=== PATIENT | male | born 1960 | race Caucasian/White ===

== ENCOUNTER → 2018-11-20 | Outpatient (CLI) | payer BC ==
--- NOTE | 2018-11-20 13:29 | CONS ---
cc: Ajay. Yolie HUNTER CONSULTATION DATE OF SERVICE: 11/20/2018. A 57-year-old gentleman who has been evaluated in the Sleep [facility] for possible obstructive sleep apnea-hypopnea syndrome. HISTORY OF PRESENT ILLNESS SLEEP/WAKE-EVALUATION: Patient usual sleep schedule on weekdays from around 12 to 1 am until 8 or 9 am and on weekends from about 9 to 10 pm until 7 am. Usually no problems with falling asleep, although patient has TV set in bedroom. He sleeps in different position with extremely loud snoring because of loud isthmus of his snoring. He sleeps in a separate room from his . He wakes up from sleep 3 times with 1 episode of nocturia at night. No history of hypnagogic hallucinations, sleep paralysis or cataplexy. Patient increased his weight around 25 pounds for the last 5 years. PAST MEDICAL HISTORY: Hypertension, not on good control with 3 medications, hyperlipidemia. PAST SURGICAL HISTORY: Status post pilonidal cyst removed, fracture of the wrist. SOCIAL HISTORY: Positive for smoking for about 30 years with 1 pack a day, quit 9 months ago. Alcohol consumption occasional. REVIEW OF SYSTEMS: Awakenings from sleep, sometimes take naps daily, often on and also in a asleep part of the sleep. [employer] Sleepiness Scale 4 in family history who presents impression diabetes really checked radiographically okay. The patient does not know the dozen. No any family history. No clear disorders of respirations. PHYSICAL EXAM: A gentleman without distress BP 149/86, HR 58, RR 16, height 5 feet 10 inches, weight 192 pounds. Body mass index 27.5, temperature 97.8, oxygen saturation at room air 96% OROPHARYNX: Low position of soft palate. Mallampati III. Restriction of nasal breathing. Significant retrognathia 7 mm. Neck 15-1/2 inches in circumference. Neck Supple, no JVD. Thyroid is not palpable. LUNGS Clear to percussion and to auscultation. Good air exchange. No wheezing or rhonchi. HEART S1, S2 regular. No murmurs, gallops, or rubs. ABDOMEN Soft and nontender. Bowel sounds are present. No organomegaly appreciated. EXTREMITIES No clubbing or cyanosis. TRACE EVIDENCE TECHNICIAN Awake, alert, and oriented X3. Cranial nerves 2 to 7 intact. There is no fasciculation or atrophy. noted. No focal deficits observed. IMPRESSION: 1. Loud snoring, multiple awakenings from sleep, low position of soft palate, restriction of nasal breathing, retrognathia, obstructive sleep apnea- hypopnea syndrome .. 2. Hypertension, not under good control with three medications. 3. Hyperlipidemia. 4. Status post pilonidal cyst removal. 5. Status post fracture of the wrist in the past. PLAN: 1. Polysomnography for evaluation of patient's breathing during sleep. 2. CPAP/BiPAP titration if sleep study confirms obstructive sleep apnea-hypopnea syndrome. 3. Preferable position during sleep on the side. 4. No driving if patient feels any sleepiness. 5. I will see patient for follow up visit to explain results of testing and following plan. Thank you very much for referring this patient for consultation. Sincerely, Ramirez Phipps MD, PhD, FAASM Diplomat of [employer] [employer] [facility] [employer] [facility] Vida Ramirez Phipps MD, PhD, FAASM Diplomat of [place] [employer] [employer] [facility] Vida MMODL / HEIDIN: [id number] / MTDD
--- NOTE | 2018-11-20 14:24 | CONS ---
CONSULTATION ADDENDUM: Please send to referring Dr. Claude Urbano MD, Classroom Technology Coach DANE / BRENDA: [id number] / MTDD
== END ==
LOC: SLEEP 11:42
PROVIDERS: ATTEND Internal Medicine
DX: G47.33 Obstructive sleep apnea (adult) (pediatric) (principal); E78.5 Hyperlipidemia, unspecified; Z98.890 Other specified postprocedural states; Z87.81 Personal history of (healed) traumatic fracture; I10 Essential (primary) hypertension; Z99.89 Dependence on other enabling machines and devices; Z87.891 Personal history of nicotine dependence
CPT/HCPCS: 99211

== ENCOUNTER → 2019-03-12 | Outpatient (CLI) | payer BC ==
--- NOTE | 2019-03-12 13:04 | SFUN ---
SLEEP CENTER FOLLOW UP NOTE DATE OF SERVICE: 03/12/2019 This 58-year-old gentleman has been followed in sleep center for treatment of obstructive sleep apnea-hypopnea syndrome patient. Recently had a home sleep apnea test which showed severe sleep apnea. Then he had CPAP titration and subsequently was started on treatment with CPAP. I discussed results of sleep studies with patient in details. He was able to use CPAP equipment every night for the whole night without significant problems related to mask fitting, pressure humidification. He feels better having to his sleep. [place] Sleepiness Scale today is 4, which is normal. I checked his CPAP unit, range of the pressure 5 to 14 cm of water. The average pressure 12.5 cm of water, quite high leak 38 L/minute for usage of nasal pillow mask. The patient using Andersen FX nasal pillows. The usage of the machine 28 out of 30 nights for more than 4 hours with average usage is 7.3 hours, which is great compliance. Apnea-hypopnea index is only 2.4, which is absolutely normal. MEDICATIONS: Atorvastatin, amlodipine. PHYSICAL EXAMINATION: During physical exam, patient is in no distress. VITAL SIGNS: BP 155/82, HR 70, RR 16, weight 197, temp 97.8, oxygen saturation at room air 97%. HEENT: PERRLA, EOMI. Oropharynx low position of soft palate, Mallampati 3-4. NECK: Supple, no JVD. Thyroid is not palpable. LUNGS: Clear to percussion and to auscultation. Good air exchange. No wheezing or rhonchi. HEART: S1, S2 regular. No murmurs, gallops, or rubs. ABDOMEN: Slightly obese. EXTREMITIES: No clubbing or cyanosis. MACHINE STACKER: Awake, alert, and oriented X3. Cranial nerves 2 to 7 intact. There is no fasciculation or atrophy. noted. No focal deficits observed. IMPRESSION: 1. Severe obstructive sleep apnea-hypopnea syndrome, apnea-hypopnea index 54.2 with oxygen desaturation to 79% by results of home sleep apnea test on full control with CPAP. The patient demonstrated great compliance with treatment, benefitting from treatment. 2. Obesity. 3. Hypertension. 4. Hyperlipidemia. 5. Status post pilonidal cyst removed. PLAN: 1. Patient will continue to use CPAP equipment every night for the whole night. 2. Watching and losing weight. 3. Sleep hygiene with regular time in bed for at least 8 hours. 4. No driving if feeling any sleepiness. 5. I will maintain all necessary CPAP supplies, prescriptions including nasal pillow mask Andersen FX, heated tube, filters. 6. Followup visit in about 1 year or earlier if patient has any problems. Thank you very much for allowing me to participate in management of your patient. Sincerely, Ramirez Phipps MD, PhD, FAASM Diplomat of [place] [employer] [employer] Purchase Order [employer] [facility] [place] MMODL / IJN: [id number] /
== END ==
LOC: SLEEP 11:38
PROVIDERS: ATTEND Internal Medicine
DX: G47.33 Obstructive sleep apnea (adult) (pediatric) (principal); E66.9 Obesity, unspecified; I10 Essential (primary) hypertension; E78.5 Hyperlipidemia, unspecified; Z98.890 Other specified postprocedural states; Z99.89 Dependence on other enabling machines and devices; Z79.899 Other long term (current) drug therapy

== ENCOUNTER → 2020-09-15 | Outpatient (CLI) | payer BC ==
--- NOTE | 2020-09-15 11:16 | CTL ---
EXAMINATION TYPE: CT Low Dose Lung DATE OF EXAM ORDERED: 09/15/2020 HISTORY: . Lung cancer screening CT DLP: 97.3 mGycm Automated exposure control for dose reduction was used. SCREENING VISIT: COMPARISON: TECHNIQUE: Low dose computed tomography scan was performed through the chest at 1 mm thick sections a nd reconstructed images in the coronal plane at [address] DIAGNOSTIC QUALITY: Satisfactory FINDINGS: LUNG NODULES: None. LUNGS: COPD: Severity: None Fibrosis: Severity: None Lymph nodes: None Other findings: None RIGHT PLEURAL SPACE: Effusion: None Calcification: None Thickening: None Pneumothorax: None LEFT PLEURAL SPACE: Effusion: None Calcification: None Thickening: None Pneumothorax: None HEART: Heart Size: Normal Coronary calcification: Minimal Pericardial effusion: None OTHER FINDINGS: Upper abdomen: Normal Bony thorax: Normal Supraclavicular region: Normal Other: Ascending thoracic aorta at the level of main pulmonary artery is 3.8 cm. The main pulmonary a rtery the bifurcation is 2.7 cm. IMPRESSION: No suspicious changes to suggest neoplasm FOLLOW UP CT CHEST RECOMMENDATION: Follow-up low-dose CT chest [address] LUNG RAD: 1
== END | disposition home or self-care (01) ==
LOC: RADCTMAIN 07:48
PROVIDERS: ATTEND Family Medicine
DX: Z12.2 Encounter for screening for malignant neoplasm of respiratory organs (principal); Z87.891 Personal history of nicotine dependence

== ENCOUNTER → 2022-09-11 | Outpatient (CLI) | payer BC ==
--- NOTE | 2022-09-11 11:41 | XR ---
EXAMINATION TYPE: XR shoulder complete LT DATE OF EXAM: 09/11/2022 COMPARISON: NONE HISTORY: PAIN TECHNIQUE: Three views are submitted. FINDINGS: The osseous structures are intact. There is no acute fracture or dislocation. The joint arthropathy noted.. IMPRESSION: 1. AC joint arthropathy consider follow-up MRI..
== END | disposition home or self-care (01) ==
LOC: RADXRYALE 11:20
PROVIDERS: ATTEND Family Medicine
DX: M12.812 Other specific arthropathies, not elsewhere classified, left shoulder (principal); M25.512 Pain in left shoulder

== ENCOUNTER → 2023-09-18 | Outpatient (CLI) | payer BC ==
--- NOTE | 2023-09-18 13:07 | CA ---
Transthoracic Echo Report Name: Jerry Marie Age: 62 Gender: M : 1960 Exam Date: 09/18/2023 11:42 Exam Location: [facility] Ht (in): 70 Wt (lb): 200 Ordering Physician: Kyle Lim DO Attending/Referring Phys: Kyle Lim DO Senior Business Analyst Lakeisha King [facility] Procedure CPT: Indications: I35.1 NONRHEUMATIC AORTIC (VALVE) INSUFFICIENCY Cardiac Hx: Technical Quality: Fair Contrast 1: Total Dose (mL): Contrast 2: Total Dose (mL): MEASUREMENTS (Male / Female) Normal Values 2D ECHO LV Diastolic Diameter PLAX 5.1 cm 4.2 - 5.9 / 3.9 - 5.3 cm LV Systolic Diameter PLAX 3.9 cm IVS Diastolic Thickness 1.0 cm 0.6 - 1.0 / 0.6 - 0.9 cm LVPW Diastolic Thickness 1.0 cm 0.6 - 1.0 / 0.6 - 0.9 cm LV Relative Wall Thickness 0.4 LVOT Diameter 2.0 cm Ascending Aorta Diameter 3.2 cm M-MODE Aortic Root Diameter MM 2.5 cm LA Systolic Diameter MM 3.6 cm LA Ao Ratio MM 1.5 AV Cusp Separation MM 2.2 cm DOPPLER AV Peak Velocity 126.9 cm/s AV Peak Gradient 6.4 mmHg AV Mean Velocity 82.1 cm/s AV Mean Gradient 3.1 mmHg AV Velocity Time Integral 25.7 cm LVOT Peak Velocity 93.3 cm/s LVOT Peak Gradient 3.5 mmHg LVOT Velocity Time Integral 18.9 cm LVOT Stroke Volume 62.3 cm??? LVOT Stroke Volume Index 29.8 ml/m??? LVOT Cardiac Index 1777.7 cm???/min???m??? AV Area Cont Eq vti 2.4 cm??? AV Area Cont Eq pk 2.4 cm??? Mitral E Point Velocity 72.1 cm/s Mitral A Point Velocity 59.1 cm/s Mitral E to A Ratio 1.2 MV Deceleration Time 151.1 ms LV E' Lateral Velocity 9.5 cm/s Mitral E to LV E' Lateral Ratio 7.6 LV E' Septal Velocity 9.1 cm/s Mitral E to LV E' Septal Ratio 7.9 Right Atrial Pressure 3.0 mmHg FINDINGS Left Ventricle Left ventricular cavity size normal. Normal left ventricular wall motion. Left ventricular ejection fraction is estimated at 55-60 %. Right Ventricle Normal right ventricular size. Right Atrium Normal right atrial size. Left Atrium Normal left atrial size. Mitral Valve Structurally normal mitral valve. Mild mitral regurgitation. Aortic Valve Trileaflet aortic valve. Mild aortic regurgitation. Tricuspid Valve Structurally normal tricuspid valve. No tricuspid regurgitation. Pulmonic Valve Structurally normal pulmonic valve. Mild pulmonic regurgitation. Pericardium Echo free space anterior to the right ventricle likely represents a fat pad. Aorta Normal size aortic root and proximal ascending aorta. CONCLUSIONS 1. Normal left ventricular size and systolic function 2. Mild mitral and aortic regurgitation. Previewed by: Dr. Kt Lopez MD (Electronically Signed) Final Date: 18 September 2023 13:06
== END | disposition home or self-care (01) ==
LOC: RADECHMAIN 11:14
PROVIDERS: ATTEND Family Medicine
DX: I08.0 Rheumatic disorders of both mitral and aortic valves (principal)
CPT/HCPCS: 93306

== ENCOUNTER → 2024-01-20 | Outpatient (CLI) | payer BC ==
--- NOTE | 2024-01-20 14:24 | XR ---
EXAMINATION TYPE: XR chest 2V DATE OF EXAM: 01/20/2024 COMPARISON: None HISTORY: 63-year-old male R051, R042 COUGH, HEMOPTYSIS TECHNIQUE: Frontal and lateral views FINDINGS: The heart is normal size. Aorta and pulmonary vasculature within normal limits. Mild patchy interstit ial density at the right base. Mild hyperinflation. No other consolidation or pleural effusion. IMPRESSION: COPD. Mild patchy density at the right base could represent atelectasis or an early infiltrate.
== END | disposition home or self-care (01) ==
LOC: RADXRYALE 11:22
PROVIDERS: ATTEND Family Medicine
DX: R04.2 Hemoptysis (principal); J44.9 Chronic obstructive pulmonary disease, unspecified
CPT/HCPCS: 71046

== ENCOUNTER → 2024-04-27 | Outpatient (CLI) | payer BC ==
--- NOTE | 2024-04-27 10:25 | CTL ---
EXAMINATION TYPE: CT Low Dose Lung DATE OF EXAM ORDERED: 04/27/2024 HISTORY: 63-year-old male former smoker with 25 pack-year history. Lung cancer screening. Z87.891 CT DLP: 136.[address] CTDI: 3.4 mGy Automated exposure control for dose reduction was used. SCREENING VISIT: Last screening exam four years ago COMPARISON: 09/15/2020 TECHNIQUE: Low dose computed tomography scan was performed through the chest at 1 mm thick sections a nd reconstructed images in multiple planes at 1 mm and [address] DIAGNOSTIC QUALITY: Satisfactory FINDINGS: Heart normal size without pericardial effusion. LCA and RCA coronary calcifications are present. Borderline ectatic ascending aorta at 3.5 cm with minimal atherosclerotic arch calcifications and con ventional arch vessel branching anatomy. No thoracic lymphadenopathy by CT size criteria. Prominent hazy interstitial subpleural opacity especially along the posterior right mid and lower francisco g. Lesser degree of similar changes along the periphery of the right base. Mild to moderate diffuse b ronchial wall thickening and mild emphysematous change. No consolidation or pleural effusion is other schafer seen. 6 mm nodular thickening along the right mid lung at the major fissure remains unchanged. No other cleo picious pulmonary nodules are seen. Tiny hiatal hernia. Visualized upper abdomen shows no gross abnormality. Bones: Scattered mild degenerative disc disease of the thoracic spine. IMPRESSION: 1. LungRADS 2, benign. Unchanged 6 mm fissural lymph node right mid lung. 2. COPD with mild emphysema. 3. Interstitial and groundglass along the periphery of the right mid and lower lung has developed in the interval. 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 Reasse ss at the patient's annual follow-up. CT LUNG RAD AND CT CHEST RECOMMENDATION: Lung-Rad 2 Benign Appearance or Behavior: Continue annual sc reening with LDCT in 12 months. S Modifier (other clinically significant findings): None
== END | disposition home or self-care (01) ==
LOC: RADCTMAIN 09:40
PROVIDERS: ATTEND Family Medicine
DX: Z12.2 Encounter for screening for malignant neoplasm of respiratory organs (principal); Z87.891 Personal history of nicotine dependence; J43.9 Emphysema, unspecified
CPT/HCPCS: 71271